=== PATIENT | female | born 1960 | race African-American/Black ===

== ENCOUNTER 2021-02-15 05:06 | Day surgery (SDC) | payer MEDICAID ==
[~2021-02-15] VITALS: Ht 162.6 cm; Wt 111.1 kg
[~2021-02-15 05:06] MED LIST: ACTOS30 MG PO; AMITRIPTYLINE H10 M1 PO; ASPIRIN 81M81 MG/TA2 PO; CALCIUM600 MG PO; EFFIENT10 MG PO; LANTUS100 U/ML SC; LEVOXYL0.3 MG PO; LOPRESSOR 550 MG/TAB PO; LOTENSIN20 MG PO; METHOTREXA2.5 MG/TAB PO; METHOTREXATE SO20 MG PO; NORVASC 10MG10 MG PO; PAXIL40 MG PO; PLAQUENIL 200M200 MG PO; PRAVACHOL 40MG40 MG PO; PRIL40 PO; RESTASIS0.05% OP; SYNTHROID0.3 MG PO; TYLENOL 325MG325 MG PO
[2021-02-15] MEDS ORDERED: CRESTOR20 MG PO (06:00)
[2021-02-15] MEDS ORDERED: MASON NATURAL2000 IU PO (06:01)
[2021-02-15] MEDS ORDERED: ULTRAM 50MG TAB50 MG PO (06:01)
[2021-02-15] MEDS ORDERED: LODINE500 MG PO (06:02)
[2021-02-15] MEDS ORDERED: FOLIC ACID0.4 MG PO (06:02)
[2021-02-15] MEDS ORDERED: PLAQUENIL 200M200 MG PO (06:03)
[2021-02-15] MEDS ORDERED: LANTUS100 U/ML SQ (06:03)
[2021-02-15] MEDS ORDERED: HUMALOG100 U/ML SQ (06:03)
[2021-02-15] MEDS ORDERED: LEVOXYL0.1 MG PO (06:04)
[2021-02-15] MEDS ORDERED: NASONEX SPRAY17 GM NS (06:04)
[2021-02-15] MEDS ORDERED: SALAGEN7.5 MG PO (06:08)
[2021-02-15] MEDS ORDERED: EXELON9.5 MG/24 TD (06:09)
[2021-02-15] MEDS ORDERED: CARDIZEM120 MG PO (06:10)
[2021-02-15] MEDS ORDERED: ANTACID200 MG PO (06:10)
[2021-02-15] MEDS ORDERED: VOLTAREN GEL 1%1 TU TP (06:12)
[2021-02-15] MEDS ORDERED: JANUVIA 100MG100 MG PO (06:12)
[2021-02-15] MEDS ORDERED: AMARYL1 MG PO (06:12)
[2021-02-15] MEDS ORDERED: PREVACID 30MG30 M1 PO (06:13)
[2021-02-15] MEDS ORDERED: LEVAQUIN 5500 MG/TA1 PO (06:13)
[2021-02-15] MEDS ORDERED: SAXENDA6 MG/ML SQ (06:14)
[2021-02-15] MEDS ORDERED: ONE-A-DAY ESSE1 EACH PO (06:14)
[2021-02-15] MEDS ORDERED: EXELON3 MG PO (06:15)
[2021-02-15] MEDS ORDERED: DAYPRO 600600 MG PO (06:15)
[2021-02-15] MEDS ORDERED: K-TAB20 PO (06:15)
[2021-02-15] MEDS ORDERED: VITAMIN B12 781 TAB PO (06:16)
[2021-02-15] MEDS ORDERED: LINZESS290CAP PO (06:18)
[2021-02-15] MEDS ORDERED: JARDIANCE10 PO (06:20)
[2021-02-15 06:25] VITALS: BP 130/65; PULSE 73; TEMP 97.9
[2021-02-15 07:57] VITALS: BP 107/75; PULSE 68; TEMP 97.7
--- NOTE | 2021-02-15 08:02 | NUR ---
0757: PATIENT ARRIVED BACK TO [facility]. REPORT RECIEVED FROM FERMIN MACHUCA. SISTER AT BEDSIDE. PATIENT RESTING WITH EYES CLOSED. VITAL SIGNS STABLE.
[2021-02-15 08:12] VITALS: BP 122/69; PULSE 69
--- NOTE | 2021-02-15 08:12 | NUR ---
Patient reports doing well. Awake and alert. Vital signs stable. Requesting water and sugar free pudding. Tolerating both well.
[2021-02-15 08:27] VITALS: BP 119/89; PULSE 70
--- NOTE | 2021-02-15 08:30 | NUR ---
Went through discharge instructions with patient and patient's sister, Liliya. Patient and sister verbalized understanding, questions answered. Patient doing well no complaint of pain or nausea. Tolerated food and drink well. IV removed with no complications.
[2021-02-15 08:42] VITALS: BP 126/80; PULSE 72
--- NOTE | 2021-02-15 08:45 | NUR ---
Patient got dressed, used restroom, escorted patient to patient entrance via wheelchair. Assisted patient into personal vehicle, patient left in the care of her sister, Liliya.
== END 2021-02-15 08:50 | disposition home or self-care (01) ==
LOC: SDCO 05:06
DX: G56.01 Carpal tunnel syndrome, right upper limb (principal); M79.7 Fibromyalgia; I10 Essential (primary) hypertension; E11.9 Type 2 diabetes mellitus without complications; M19.90 Unspecified osteoarthritis, unspecified site; M06.9 Rheumatoid arthritis, unspecified; E78.00 Pure hypercholesterolemia, unspecified; F32.A Depression, unspecified; Z79.82 Long term (current) use of aspirin; Z79.890 Hormone replacement therapy; Z79.899 Other long term (current) drug therapy; Z83.3 Family history of diabetes mellitus
CPT/HCPCS: J0690; J2250; J2704; J7030

== ENCOUNTER 2021-03-23 05:11 | Day surgery (SDC) | payer MEDICARE, MEDICAID ==
[~2021-03-23] VITALS: Ht 162.6 cm; Wt 108.1 kg
[~2021-03-23 05:11] MED LIST changes: +AMARYL1 MG PO; +ANTACID200 MG PO; +CARDIZEM120 MG PO; +CRESTOR20 MG PO; +DAYPRO 600600 MG PO; +EXELON3 MG PO; +EXELON9.5 MG/24 TD; +FOLIC ACID0.4 MG PO; +HUMALOG100 U/ML SQ; +JANUVIA 100MG100 MG PO; +JARDIANCE10 PO; +K-TAB20 PO; +LANTUS100 U/ML SQ; +LEVAQUIN 5500 MG/TA1 PO; +LEVOXYL0.1 MG PO; +LINZESS290CAP PO; +LODINE500 MG PO; +MASON NATURAL2000 IU PO; +NASONEX SPRAY17 GM NS; +ONE-A-DAY ESSE1 EACH PO; +PREVACID 30MG30 M1 PO; +SALAGEN7.5 MG PO; +SAXENDA6 MG/ML SQ; +ULTRAM 50MG TAB50 MG PO; +VITAMIN B12 781 TAB PO; +VOLTAREN GEL 1%1 TU TP
[2021-03-23 05:39] VITALS: BP 134/79; PULSE 77; TEMP 97
[2021-03-23 07:46] VITALS: BP 110/68; PULSE 76; TEMP 97.6
--- NOTE | 2021-03-23 07:46 | NUR ---
The patient arrived back to [facility] from the operating room at this time. The patient appears alert and oriented and denies any pain or nausea at this time. The patient has an acewrap dressing to her left hand that appears clean, dry and intact. The patient agrees to try some ice water at this time. Call light is within reach. The patient's sister is at her bedside at this time. Will continue to monitor the patient.
[2021-03-23 08:01] VITALS: BP 118/67; PULSE 74
--- NOTE | 2021-03-23 08:01 | NUR ---
The patient appears to be tolerating the water well and denies wanting anything further to eat or drink at this time. Vital signs appear stable. Call light is within reach. Will continue to monitor the patient.
[2021-03-23 08:16] VITALS: BP 107/63; PULSE 72
--- NOTE | 2021-03-23 08:16 | NUR ---
The patient voices a desire to be discharged home at this time. Vital signs remain stable.
--- NOTE | 2021-03-23 08:25 | NUR ---
Discharge instructions were reviewed with the patient and her sister at this time. They both verbalized understanding and have no questions for the nurse at this time. The patient's IV to her right hand was removed and a pressure dressing was applied to the site. The nurse instructed the patient to get dressed and notify the staff when she is ready to be escorted out.
--- NOTE | 2021-03-23 08:40 | NUR ---
The patient was escorted out via wheelchair to a private vehicle by FERMIN Hidalgo. The patient's belongings and discharge paperwork were sent with her. The patient's sister is present to drive her home.
== END 2021-03-23 08:40 | disposition home or self-care (01) ==
LOC: SDCO 05:11
DX: G56.02 Carpal tunnel syndrome, left upper limb (principal); I10 Essential (primary) hypertension; I25.2 Old myocardial infarction; M79.7 Fibromyalgia; M19.90 Unspecified osteoarthritis, unspecified site; M54.9 Dorsalgia, unspecified; I51.9 Heart disease, unspecified; E78.00 Pure hypercholesterolemia, unspecified; E11.9 Type 2 diabetes mellitus without complications; F32.A Depression, unspecified; F03.90 Unspecified dementia, unspecified severity, without behavioral disturbance, psychotic disturbance, mood disturbance, and anxiety; F41.9 Anxiety disorder, unspecified; Z79.891 Long term (current) use of opiate analgesic; Z95.1 Presence of aortocoronary bypass graft; Z79.4 Long term (current) use of insulin; Z79.899 Other long term (current) drug therapy; Z83.3 Family history of diabetes mellitus
CPT/HCPCS: J0690; J2405; J2704; J3010; J7030

== ENCOUNTER → 2021-06-02 | Outpatient (CLI) | payer MEDICARE, MEDICAID ==
[2021-06-02 11:06] LABS: CHOLESTEROL RISK RATIO 4.1
[2021-06-02 11:25] LABS: THYROID STIMULATING HORMONE 3.086 uIU/mL (0.350-4.940)
== END ==
LOC: COL.LAB 10:10
PROVIDERS: Nurse Practitioner Family
DX: E78.5 Hyperlipidemia, unspecified (principal); E03.9 Hypothyroidism, unspecified